=== PATIENT | female | born 1955 | race Hispanic/Latino ===

== ENCOUNTER → 2018-07-05 | Day surgery (SDC) | payer OTHER ==
--- NOTE | 2018-07-05 13:13 | RAD REPORT ---
EXAM DESCRIPTION: US - Guided FNA Non Breast - 07/05/2018 12:04 pm CLINICAL HISTORY: Thyroid nodule ICD 0 4.1. COMPARISON: Ultrasound May 2018. TECHNIQUE: The risks, benefits and alternatives to the procedure were explained to the patient and i nformed consent obtained. Skin and subcutaneous tissues anesthetized with Lidocaine. Under sonographic guidance, five 25-gauge needle passes were obtained into the dominant nodule within the left lobe of the thyroid gland. Specimens were given to pathology. The patient experienced no immediate complication. IMPRESSION: Fine-needle aspiration of a thyroid nodule.
== END ==
LOC: FNA 06-27 09:58
PROVIDERS: ATTEND Internal Medicine
PROC: 0GJK3ZZ Inspection of Thyroid Gland, Percutaneous Approach (ICD-10-PCS; principal; 2018-07-05)
PROC: BG44ZZZ Ultrasonography of Thyroid Gland (ICD-10-PCS; 2018-07-05)
DX: E04.1 Nontoxic single thyroid nodule (principal)
CPT/HCPCS: 76942; 88162

== ENCOUNTER 2023-01-20 06:27 | Day surgery (SDC) | payer BC, OTHER ==
--- NOTE | 2023-01-18 15:44 | RAD REPORT ---
EXAM DESCRIPTION: RAD - Chest Pa And Lat (2 Views) - 01/18/2023 3:34 pm CLINICAL HISTORY: pre op for label drier Chest pain. COMPARISON: CHEST SINGLE VIEW dated 02/19/2016; CHEST SINGLE VIEW dated 03/29/2015; CHEST SINGLE VIEW d ated 02/22/2015; CHEST PA AND LAT 2 VIEW dated 09/06/2014 FINDINGS: The lungs are clear. The heart is normal in size. No displaced fractures. IMPRESSION: No acute or concerning finding suspected.
[2023-01-18 16:19] LABS: Absolute Lymphocytes (CBC) 1.3 K/uL (0.7-4.9); Hematocrit 36.2 % (36.0-45.0); Lymphocytes % 13.2 % (15.3-44.8); MCV 88.5 fL (80-100); MPV 10.6 fL (7.6-11.3); RBC Red Blood Cell Count 4.09 M/uL (3.86-4.86)
[2023-01-18 16:22] LABS: Protime INR 0.98
[2023-01-18 16:28] LABS: Potassium 4.3 mmol/L (3.5-5.1)
--- NOTE | 2023-01-19 16:19 | EKG ---
Test Date: 2023-01-18 Test Time: 15:16:08 Railway Traction Line Worker: CAROL MEASUREMENT RESULTS: Intervals: Rate: 75 HI: 128 QRSD: 90 QT: 382 QTc: 426 [place]: P: 58 HI: 128 QRS: -34 T: 112 INTERPRETIVE STATEMENTS: Normal sinus rhythm Left axis deviation Inferior infarct, age undetermined Possible Anterior infarct, age undetermined ST & T wave abnormality, consider lateral ischemia Abnormal ECG Compared to ECG 02/19/2016 11:48:42 Myocardial infarct finding now present ST (T wave) deviation still present Possible ischemia still present Electronically Signed On 01-19-23 16:18:10 NUCLEAR EQUIPMENT OPERATOR by Viral Gonzales
[~2023-01-20 06:27] MED LIST: ASPIRIN 325 MG TAB ONE; ATROPINE SULF 1 MG/10 ML SYR IV ONE; CLOPIDOGREL 75 MG TABLET ONE; FENTANYL CITR 100 MCG/2 ML ONE; HEPA 1000U/500MLS 2,000 UNIT/1,000 ML BAG IV ONE; HEPARIN 10,000 UNIT/10 ML VIAL IV ONE; HEPARIN 5000 UNIT/ML 1 ML VIAL ONE; LIDOCAINE 1% 20 ML MDV ONE; MIDAZOLAM HCL 2 MG/2 ML INJ ONE; TICAGRELOR 90 MG TABLET PO ONE; VERAPAMIL HCL 10 MG/4 ML VIAL IV ONE
[2023-01-20] MEDS ORDERED: NA CHLORIDE 0.9% 500 ML ONE (06:33)
[2023-01-20 06:37] VITALS: TEMP 97.4
[2023-01-20] MEDS ORDERED: DIPHENHYDRAMINE 50 MG/ML VIAL ONE (06:47)
[2023-01-20] MEDS ORDERED: METHYLPREDNISOLONE 125 MG INJ ONE (06:48)
[2023-01-20 09:32] VITALS: O2SAT 97
[2023-01-20 10:02] VITALS: BP 138/60
== END 2023-01-20 10:03 | disposition home or self-care (01) ==
LOC: CCL 06:27
PROVIDERS: ATTEND Internal Medicine
DX: I25.10 Atherosclerotic heart disease of native coronary artery without angina pectoris (principal); I25.82 Chronic total occlusion of coronary artery; I10 Essential (primary) hypertension; E78.5 Hyperlipidemia, unspecified; E11.9 Type 2 diabetes mellitus without complications; Z79.4 Long term (current) use of insulin; Z79.899 Other long term (current) drug therapy; Z88.5 Allergy status to narcotic agent; Z91.041 Radiographic dye allergy status
CPT/HCPCS: 93005; 85025; 80048; 36415; 85610; 82947; 85730; 71046; 93454; C1893; Q9966; J2001; J1200; J1644 ×2; J2250; J3010; J7040; J2930; J0461

== ENCOUNTER 2023-09-27 22:32 | Observation (INO) | payer OTHER ==
[2023-09-27] MEDS ORDERED: HYDRALAZINE HCL 20 MG/ML VIAL ONE (23:11)
[2023-09-27 23:40] LABS: Hematocrit 35.7 % (36.0-45.0); MCV 88.5 fL (80-100); RBC Red Blood Cell Count 4.03 M/uL (3.86-4.86)
[2023-09-27 23:41] LABS: Lymphocytes % 26.7 % (15.3-44.8); MPV 10.2 fL (7.6-11.3); Platelets 196 thou/uL (152-406); Protime INR 0.95
[2023-09-27] MEDS ORDERED: METOCLOPRAMIDE 10 MG/2mL INJ ONE (23:44)
[2023-09-27] MEDS ORDERED: ACETAMINOPHEN 500 MG TAB ONE (23:44)
[2023-09-27 23:55] LABS: ALT/SGPT 28 U/L (13-56); AST/SGOT 21 U/L (15-37); BUN Blood Urea Nitrogen 21 mg/dL (7-18); Bicarbonate 24 mEq/L (21-32); Glomerular Filtration Rate 49 ml/min (=/>90); Glucose Level 150 mg/dL (74-106); Potassium 4.4 mEq/L (3.5-5.1); Sodium Level 139 mEq/L (136-145)
[2023-09-27 23:56] LABS: Albumin 3.5 g/dL (3.4-5.0); Alkaline Phosphatase 104 U/L (45-117); Bilirubin Total 0.3 mg/dL (0.2-1.0); Magnesium 1.9 mg/dL (1.6-2.4); NT PRO-BNP 463 pg/mL (<125); Protein, Total 7.4 g/dL (6.4-8.2); Troponin High Sensitivity 35.8 pg/mL (<58.9)
[2023-09-28 00:19] LABS: Bilirubin Direct < 0.1 mg/dL (0-0.2); Bilirubin Indirect, Calculated ND mg/dL (0.2-0.8)
--- NOTE | 2023-09-28 02:56 | EDPHYS ---
Physician Documentation [facility] Name: Mary Silva Age: 67 yrs Sex: Female : 1955 Arrival Date: 09/27/2023 Time: 22:32 Bed 7 Private MD: ED Physician Jarred Jacques HPI: 09/27 22:46 This 67 yrs old Female presents to ER via Ambulatory with complaints of High sp4 Blood Pressure, Nose Bleed, Left Side Pain. 22:57 PMH - Historical: Allergies: Codeine; Iodine; IV Contrast; Home Meds: atorvastatin sp4 oral; losartan oral; Plavix Oral PMHx: COLON CA; Diabetes - IDDM; Pancreatitis; Hypertensive disorder; Heart disease PSHx: Coronary artery bypass graft; . 23:21 AC is six 7-year-old female with history of colon cancer diabetes heart disease CABG sp4 hypertensive disorder and pancreatitis who presents with acute onset of elevated blood pressures at home, feeling unwell and posterior headache. Patient reports that yesterday she had episode of nosebleed. . Historical: - Allergies: 22:43 Codeine; bp 22:43 Iodine; bp 22:43 IV contrast; bp - Home Meds: 22:43 atorvastatin oral [Active]; losartan oral [Active]; Plavix Oral [Active]; lisinopril bp Oral 1 tab once daily [Active]; insulin daily [Active]; metoprolol tartrate 25 mg oral tablet 1 tabs daily [Active]; - PMHx: 22:43 COLON CA; Diabetes - IDDM; heart disease; Hypertensive disorder; Pancreatitis; bp - PSHx: 22:43 Coronary artery bypass graft; bp - Immunization history:: Adult Immunizations up to date. - Social history:: Smoking status: Patient denies any tobacco usage or history of. - Family history:: not pertinent. ROS: 23:21 Constitutional: Negative for fever, chills, and weight loss, positive elevated blood sp4 pressure positive posterior headache positive for feeling unwell positive nosebleed yesterday 23:21 All other systems are negative, Exam: 23:21 Constitutional: This is a well developed, well nourished patient who is awake, alert, sp4 and in no acute distress. Head/Face: Normocephalic, atraumatic. Eyes: Pupils equal round and reactive to light, extra-ocular motions intact. Lids and lashes normal. Conjunctiva and sclera are not injected. Cornea within normal limits. Periorbital areas with no swelling, redness, or edema. ENT: Nares patent. No nasal discharge, no septal abnormalities noted. Tympanic membranes are normal and external auditory canals are clear. Oropharynx with no redness, swelling, or masses, exudates, or evidence of obstruction, uvula midline. Mucous membranes moist. Neck: Trachea midline, no thyromegaly or masses palpated, and no cervical lymphadenopathy. Supple, full range of motion without nuchal rigidity, or vertebral point tenderness. Chest/axilla: Normal chest wall appearance and motion. Nontender with no deformity. No lesions are appreciated. Cardiovascular: Regular rate and rhythm with a normal S1 and S2. No gallops, murmurs, or rubs. Normal PMI, no JVD. No pulse deficits. Respiratory: Lungs have equal breath sounds bilaterally, clear to auscultation and percussion. No rales, rhonchi or wheezes noted. No increased work of breathing, no retractions or nasal flaring. Abdomen/GI: Soft, non-tender, with normal bowel sounds. No distension or tympany. No guarding or rebound. No evidence of tenderness throughout. Back: No spinal tenderness. No costovertebral tenderness. Skin: Warm, dry with normal turgor. Normal color with no rashes, no lesions, and no evidence of cellulitis. MS/ Extremity: Pulses equal, no cyanosis. Neurovascular intact. Full, normal range of motion. Neuro: Awake and alert, GCS 15, oriented to person, place, time, and situation. Cranial nerves II-XII grossly intact. Motor strength 5/5 in all extremities. Sensory grossly intact. Psych: Awake, alert, with orientation to person, place and time. Behavior, mood, and affect are within normal limits 09/28 02:55 ECG was reviewed by the Attending Physician. EKG time [id number]. Normal sinus rhythm with a sp4 rate of 75, left axis deviation, no ST elevation or depression. No ectopy Vital Signs: 09/27 22:44 BP 213 / 70; Pulse 74; Resp 16; Temp 98; Pulse Ox 99% ; bp 09/28 00:15 BP 135 / 58; Pulse 73; Resp 18 S; Pulse Ox 100% on R/A; jw7 01:20 BP 116 / 47; Pulse 71; Resp 18; Pulse Ox 97% ; jj7 02:30 BP 126 / 58; Pulse 65; Resp 17 S; Pulse Ox 99% on R/A; jw7 MDM: 09/27 22:46 Patient medically screened. sp4 09/28 02:51 ED course: Chest X ray - TECHNIQUE: Frontal view of the chest. COMPARISON: No relevant sp4 prior studies available. FINDINGS: Lungs: Unremarkable. No consolidation. Pleural space: Unremarkable. No pneumothorax. Heart: Unremarkable. Mediastinum: Unremarkable. Bones/joints: Median sternotomy wires. IMPRESSION: No acute findings in the chest. 02:51 Differential diagnosis: hypertensive crisis, Malignant HTN, CVA, Hypertensive urgency, sp4 anginal equivalent. Data reviewed: vital signs, nurses notes. 02:52 Consideration of Admission/Observation Patient was admitted/placed on observation. sp4 Escalation of care including admission/observation considered. Management of patient was discussed with the following: Hospitalist: Patient presents with exceedingly high blood pressure. ED course: On presentation blood pressure 230/100 this has significantly improved with IV hydralazine. Patient reports he now has some headache and left sided neck pain associated with pain traveling down the left arm. Patient will be started on Imdur, will request admission for blood pressure monitoring. Also for repeat troponin and possible the consultation with public transit trolley driver in the morning. . 05:12 ED course: CT - COMPARISON: No relevant prior studies available. FINDINGS: Brain: Mild sp4 bilateral periventricular and subcortical white matter hypodensity which is nonspecific and can be seen in the clinical setting of chronic microvascular angiopathy. No hemorrhage. Ventricles: Unremarkable. No ventriculomegaly. Bones/joints: Unremarkable. No acute fracture. Soft tissues: Unremarkable. Vasculature: There is atherosclerotic disease of the internal carotid and vertebral arteries bilaterally. Sinuses: Mild right maxillary sinus mucosal thickening. Mastoid air cells: Unremarkable as visualized. No mastoid effusion. IMPRESSION: 1. No acute intracranial or extra-axial abnormality. 2. Other findings as above. . 09/28 15:45 Order name: CT EDMN 09/27 22:46 Order name: XRAY Chest (1 view) sp4 09/27 22:46 Order name: Basic Metabolic Panel; Complete Time: 01:38 sp4 09/27 22:46 Order name: CBC with Diff; Complete Time: 01:38 sp4 09/27 22:46 Order name: LFT's; Complete Time: 01:38 sp4 09/27 22:46 Order name: Magnesium; Complete Time: 01:38 sp4 09/27 22:46 Order name: NT PRO-BNP; Complete Time: 01:38 sp4 09/27 22:46 Order name: PT-INR; Complete Time: 01:38 sp4 09/27 22:46 Order name: Troponin HS; Complete Time: 01:38 sp4 09/28 02:57 Order name: Troponin High Sensitivity sp4 09/28 07:55 Order name: Glucose, Ancillary Testing EDMN 09/28 11:18 Order name: Glucose, Ancillary Testing EDMN 09/28 02:52 Order name: CT Head Brain wo Cont sp4 09/28 07:42 Order name: US EDMS 09/27 22:46 Order name: EKG; Complete Time: 22:47 sp4 09/27 22:46 Order name: Cardiac monitoring; Complete Time: 23:26 sp4 09/27 22:46 Order name: EKG - Nurse/Tech; Complete Time: 00:17 sp4 09/27 22:46 Order name: IV Saline Lock; Complete Time: 23:26 sp4 09/27 22:46 Order name: Labs collected and sent; Complete Time: 23:26 sp4 09/27 22:46 Order name: O2 Per Protocol; Complete Time: 23:26 sp4 09/27 22:46 Order name: O2 Sat Monitoring; Complete Time: 23:26 sp4 EC:55 Rate is 75 beats/min. Rhythm is regular, Sinus Rhythm. Left axis deviation noted. VT sp4 interval is normal. QRS interval is normal. QT interval is normal. T waves are Inverted in lead V5. No ST changes noted. Clinical impression: No evidence of ischemia. Interpreted by me. Administered Medications: 09/27 23:27 Drug: metoCLOPramide IVP 10 mg IVP once; over 1 to 2 minutes Route: IVP; [facility]; 09/28 01:22 Follow up: Response: No adverse reaction 7 09/27 23:29 Drug: hydrALAZINE IVP 20 mg IVP once Route: IVP; Site: right antecubital; 7 09/28 01:22 Follow up: Response: No adverse reaction jw7 09/27 23:35 Drug: Acetaminophen PO 1000 mg PO once Route: PO; jj7 09/28 01:22 Follow up: Response: No adverse reaction jw7 03:31 Drug: Cyclobenzaprine PO 10 mg PO once Route: PO; jw7 04:53 Follow up: Response: No adverse reaction jw7 03:31 Drug: Imdur PO 30 mg PO once Route: PO; jw7 04:53 Follow up: Response: No adverse reaction jw7 Disposition Summary: 09/28/23 02:55 Hospitalization Ordered Notes: Hospitalization Status: Observation sp4 Provider: Marco Piña sp4 Condition: Stable sp4 Problem: new sp4 Symptoms: have improved sp4 Bed/Room Type: Standard sp4 Location: [facility] ER HOLD(09/28/23 17:20) iw Room Assignment: ERHOLD-(09/28/23 17:20) iw Diagnosis - Hypertensive heart disease without heart failure sp4 - Malignant hypertension with hypertensive emergency, acute on chronic renal sp4 insufficiency, anginal equivalent Forms: - Medication Reconciliation Form sp4 - SBAR form sp4 - Leadership Thank You Letter sp4 Signatures: Dispatcher [employer] EDMS Dulce Cruz Kimberly RN Tammy Anthony RN Cramelo Cullen RN Naa Lowery RN RN jw7 Johnson, Juwairiyah RN RN jjJarred Griffin MD MD sp4 Corrections: (The following items were deleted from the chart) 04:19 02:55 Telemetry/MedSurg (observation) sp4 kl 04:19 02:55 sp4 kl 16:46 04:19 [facility] ER HOLD kl bd 16:46 04:19 ERHOLD- kl bd 17:20 16:46 Telemetry/MedSurg (observation) bd iw 17:20 16:46 207 bd iw
--- NOTE | 2023-09-28 02:56 | ER ---
Nurse's Notes [facility] Name: Mary Silva Age: 67 yrs Sex: Female : 1955 Arrival Date: 09/27/2023 Time: 22:32 Bed 7 Private MD: Diagnosis: Hypertensive heart disease without heart failure;Malignant hypertension with hypertensive emergency, acute on chronic renal insufficiency, anginal equivalent Presentation: 09/27 22:44 Chief complaint: Patient states: HTN x4 WK, NOSE BLEED LAST PM, SEEN AT PCP TODAY. bp Coronavirus screen: At this time, the client does not indicate any symptoms associated with coronavirus-19. Ebola Screen: No symptoms or risks identified at this time. Initial Sepsis Screen: Does the patient meet any 2 criteria? No. Patient's initial sepsis screen is negative. Does the patient have a suspected source of infection? No. Patient's initial sepsis screen is negative. Risk Assessment: Do you want to hurt yourself or someone else? Patient reports no desire to harm self or others. Onset of symptoms is unknown. 22:44 Method Of Arrival: Ambulatory bp 22:44 Acuity: JIM 3 bp Triage Assessment: 22:44 General: Appears in no apparent distress. Behavior is cooperative, appropriate for age, bp anxious. Pain: Complains of pain in chest and left arm. Historical: - Allergies: 22:43 Codeine; bp 22:43 Iodine; bp 22:43 IV contrast; bp - Home Meds: 22:43 atorvastatin oral [Active]; losartan oral [Active]; Plavix Oral [Active]; lisinopril bp Oral 1 tab once daily [Active]; insulin daily [Active]; metoprolol tartrate 25 mg oral tablet 1 tabs daily [Active]; - PMHx: 22:43 COLON CA; Diabetes - IDDM; heart disease; Hypertensive disorder; Pancreatitis; bp - PSHx: 22:43 Coronary artery bypass graft; bp - Immunization history:: Adult Immunizations up to date. - Social history:: Smoking status: Patient denies any tobacco usage or history of. - Family history:: not pertinent. Screenin:00 [facility] ED Fall Risk Assessment (Adult) History of falling in the last 3 months, jw7 including since admission No falls in past 3 months (0 pts) Score/Fall Risk Level 0 - 2 = Low Risk Oriented to surroundings, Maintained a safe environment. Abuse screen: Denies threats or abuse. Denies injuries from another. Nutritional screening: No deficits noted. Tuberculosis screening: No symptoms or risk factors identified. Assessment: 23:00 General: Appears in no apparent distress. uncomfortable, Behavior is calm, cooperative. 7 23:00 Pain: Complains of pain in chest and left arm Quality of pain is described as pressure, jw7 Pain began suddenly, Is continuous, Alleviated by medications, Noted to be quiet/stoic. 23:00 Neuro: [place] Agitation-Sedation Scale (RASS): 0 - Alert and Calm Level of jw7 Consciousness is awake, alert, obeys commands, Oriented to person, place, time, situation. Cardiovascular: Heart tones S1 S2 present Capillary refill < 3 seconds Clubbing of nail beds is absent JVD is absent Patient's skin is warm and dry. Cardiovascular: Rhythm is sinus rhythm. Respiratory: Airway is patent Trachea midline Respiratory effort is even, unlabored, Respiratory pattern is regular, symmetrical, Breath sounds are clear bilaterally. GI: No deficits noted. No signs and/or symptoms were reported involving the gastrointestinal system. : No deficits noted. No signs and/or symptoms were reported regarding the genitourinary system. EENT: No deficits noted. No signs and/or symptoms were reported regarding the EENT system. Derm: No deficits noted. No signs and/or symptoms reported regarding the dermatologic system. Musculoskeletal: No deficits noted. No signs and/or symptoms reported regarding the musculoskeletal system. 09/28 00:15 Reassessment: Patient appears in no apparent distress at this time. No changes from [facility] previously documented assessment. Patient and/or family updated on plan of care and expected duration. Pain level reassessed. Patient is alert, oriented x 3, equal unlabored respirations, skin warm/dry/pink. 01:21 Reassessment: Patient appears in no apparent distress at this time. Patient and/or jw7 family updated on plan of care and expected duration. Pain level reassessed. Patient is alert, oriented x 3, equal unlabored respirations, skin warm/dry/pink. Patient states symptoms have improved. 02:40 Reassessment: Patient appears in no apparent distress at this time. No changes from [facility] previously documented assessment. Patient and/or family updated on plan of care and expected duration. Pain level reassessed. Patient is alert, oriented x 3, equal unlabored respirations, skin warm/dry/pink. 04:00 Reassessment: Patient appears in no apparent distress at this time. No changes from jw7 previously documented assessment. Patient and/or family updated on plan of care and expected duration. Pain level reassessed. Patient is alert, oriented x 3, equal unlabored respirations, skin warm/dry/pink. Vital Signs: 09/27 22:44 BP 213 / 70; Pulse 74; Resp 16; Temp 98; Pulse Ox 99% ; bp 09/28 00:15 BP 135 / 58; Pulse 73; Resp 18 S; Pulse Ox 100% on R/A; jw7 01:20 BP 116 / 47; Pulse 71; Resp 18; Pulse Ox 97% ; jj7 02:30 BP 126 / 58; Pulse 65; Resp 17 S; Pulse Ox 99% on R/A; jw7 ED Course: 09/27 22:36 Patient arrived in ED. jj6 22:44 Arm band placed on. bp 22:45 Triage completed. bp 22:46 Jarred Jacques MD is Attending Physician. sp4 23:00 Patient has correct armband on for positive identification. Placed in gown. Bed in low jw7 position. Call light in reach. Side rails up X 1. 23:15 Inserted saline lock: 22 gauge in right antecubital area, using aseptic technique. jj7 Blood collected. 23:27 Basic Metabolic Panel Sent. jj7 23:27 CBC with Diff Sent. jj7 23:27 LFT's Sent. jj7 23:27 Magnesium Sent. jj7 23:28 NT PRO-BNP Sent. jj7 23:28 PT-INR Sent. jj7 23:28 Troponin HS Sent. jj7 23:31 XRAY Chest (1 view) In Process Unspecified. EDMS 23:47 Basic Metabolic Panel Sent. jj7 23:47 LFT's Sent. jj7 23:47 Magnesium Sent. jj7 23:47 NT PRO-BNP Sent. jj7 23:47 Troponin HS Sent. jj7 09/28 00:11 EKG done, by ED staff, reviewed by Jarred Jacques MD. jw7 02:54 Marco Piña MD is Hospitalizing Provider. sp4 04:09 Troponin High Sensitivity Sent. pf1 07:31 Tammy Trent, RN is Primary Nurse. iw Administered Medications: 09/27 23:27 Drug: metoCLOPramide IVP 10 mg IVP once; over 1 to 2 minutes Route: IVP; Site: right [facility] antecubital; 09/28 01:22 Follow up: Response: No adverse reaction jw7 09/27 23:29 Drug: hydrALAZINE IVP 20 mg IVP once Route: IVP; Site: right antecubital; 7 09/28 01:22 Follow up: Response: No adverse reaction jw7 09/27 23:35 Drug: Acetaminophen PO 1000 mg PO once Route: PO; jj7 09/28 01:22 Follow up: Response: No adverse reaction jw7 03:31 Drug: Cyclobenzaprine PO 10 mg PO once Route: PO; jw7 04:53 Follow up: Response: No adverse reaction jw7 03:31 Drug: Imdur PO 30 mg PO once Route: PO; jw7 04:53 Follow up: Response: No adverse reaction jw7 Outcome: 02:55 Decision to Hospitalize by Provider. sp4 17:21 Patient left the ED. iw Signatures: Dispatcher [employer] EDMS Tammy Trent, RN Carmelo Cullen RN RN Aislinn Arriaga jj6 Naa Polanco RN RN jw7 Parag Bagley RN RN jj7 Bianka Garza RN RN pf1 Jarred Jacques MD MD sp4 Corrections: (The following items were deleted from the chart) 00:12 09/27 23:00 General: see triage assessment. jw7 jw7 09/28 00:15 00:12 General: Appears in no apparent distress. uncomfortable, Behavior is calm, jw7 cooperative, jw7
[2023-09-28] MEDS ORDERED: ACETAMINOPHEN 325 MG TABLET PO PRN (03:01)
[2023-09-28] MEDS ORDERED: ONDANSETRON 4 MG/2 ML VIAL IV PRN (03:01)
--- NOTE | 2023-09-28 03:10 | P.HP ---
Certification for Inpatient Patient admitted to: Observation With expected LOS: <2 Midnights Practitioner: I am a practitioner with admitting privileges, knowledge of patient current condition, hospital course, and medical plan of care. Services: Services provided to patient in accordance with Admission requirements found in Title 42 Section 412.3 of the Code of Federal Regulations Patient History Date of Service: 09/28/23 Reason for admission: Hypertensive urgency, suspected TIA. History of Present Illness: 67-year-old female patient with past medical history significant for hypertension, diabetes type 2, hyperlipidemia, history of coronary disease status post bypass graft surgery, hyperlipidemia was evaluated for episode of discomfort/pain in the left shoulder radiating down to the left leg. She reports that new onset elevated blood pressure despite taking her blood pressure medications. She is on losartan and metoprolol. She had gone to her primary care doctor was given instruction to help dose of metoprolol to 50 mg p.o. twice daily if systolic blood pressure is above 160 millimeters of mercury. She denied overt episode of chest pain, blurry vision, fever, chills, weakness in the extremities. She did report some mild headache in the posterior region. Because of her presentation she was worked up in the emergency room after she had repeat blood pressure with systolic of over 200 at home x2 times. Labs reviewed elevated creatinine 1.22, CT of the head showed no acute abnormality. She was given IV hydralazine for management of her elevated blood pressure thought to be having hypertensive urgency. She was admitted on observation for proper blood pressure control. Allergies codeine Allergy (Intermediate, Verified 01/18/23 15:04) Hives/Rash Iodinated Contrast Media [Iodinated Contrast Media - IV Dye] Allergy (Intermediate, Verified 01/18/23 15:04) Hives/Rash iodine Allergy (Mild, Verified 01/18/23 15:04) Hives Home Medications: Aspirin [Aspirin EC] 1 tab PO DAILY 03/22/23 Atorvastatin Calcium 1 tab PO DAILY 03/22/23 Clopidogrel Bisulfate [Plavix] 1 tab PO DAILY 03/22/23 Insulin NPH Hum/Reg Insulin Hm [Novolin 70-30 100 Unit/ml Vial] See Protocol SQ SEECOM 03/22/23 Losartan Potassium 1 tab PO DAILY 03/22/23 Metoprolol Tartrate [Lopressor*] 25 mg PO BID #60 tab 03/22/23 - Past Medical/Surgical History Diabetic: Yes -: IDDM -: Pancreatic Cancer -: COLON CANCER -: Hypertension -: Coronary artery disease -: COLON RESECTION -: CHOLECYSTECTOMY -: CABG Psychosocial/ Personal History: Patient is . - Family History Father -: Heart disease Mother -: Heart disease, Diabetes - Social History Alcohol use: No CD- Drugs: No Caffeine use: No Review of Systems General: Unremarkable Eyes: Unremarkable ENT: Unremarkable Respiratory: Unremarkable Cardiovascular: Chest Pain Gastrointestinal: Unremarkable Genitourinary: Unremarkable Musculoskeletal: Unremarkable Neurological: Numbness, As per HPI Physical Examination - Physical Exam General: Alert, Oriented x3 HEENT: Atraumatic, Normocephalic Neck: Supple Respiratory: Clear to auscultation bilaterally, Normal air movement Cardiovascular: Regular rate/rhythm, Normal S1 S2 Gastrointestinal: Soft and benign Musculoskeletal: No swelling Neurological: Normal speech, Normal strength at 5/5 x4 extr - Studies Laboratory Data (last 24 hrs) 09/27/23 09/27/23 09/27/23 23:19 23:19 23:19 WBC 7.60 Hgb 12.2 Hct 35.7 L Plt Count 196 PT 10.5 INR 0.95 Sodium 139 Potassium 4.4 BUN 21 H Creatinine 1.22 H Glucose 150 H Magnesium 1.9 Total Bilirubin 0.3 AST 21 ALT 28 Alkaline Phosphatase 104 Assessment and Plan - Plan Hypertensive urgency: Patient does have significant concerns. Blood pressure elevated systolic over 200 however this was improved with administration of IV antihypertensive medication. We will have on telemetry, work-up for possible TIA with carotid Doppler ultrasound. We will obtain lipid panel. Continue antihypertensive medication of carvedilol and nifedipine for better blood pressure control. We will adjust blood pressure medications to achieve goal blood pressure less than 130/80 mmHg. Diabetes type 2: We will monitor blood sugar ACHS and continue sliding scale insulin for glucose control. Carb restricted diet to be continued. Hyperlipidemia: We will continue statin therapy KAREN versus CKD: Creatinine is elevated at 1.23. There is concerns for possible CKD. We will continue to dose medication for estimated glomerular filtration and avoid exposure to nephrotoxins. We will recommend to establish outpatient nephrology visit for management of suspected CKD. CAD: We will continue statin therapy, Plavix and aspirin. Prophylaxis: Lovenox for DVT prophylaxis Code status: Full code. Disposition: We will work-up suspected TIA/hypertensive urgency and discharge when she is deemed clinically stable. - Advance Directives Does patient have a Living Will: No Does patient have a Durable POA for Healthcare: No
[2023-09-28] MEDS ORDERED: CYCLOBENZAPRINE 10 MG TAB ONE (03:27)
[2023-09-28] MEDS ORDERED: ISOSORBIDE MONO SR 30 MG TAB PO ONE (03:38)
[2023-09-28 04:37] VITALS: BMI 27.3
[2023-09-28] MEDS ORDERED: carvediloL 12.5 MG TAB PO SCH (06:00)
[2023-09-28] MEDS: INSULIN REGULAR (HUMAN) 100 UNIT/ML SQ SCH ×2 (07:30→11:30)
--- NOTE | 2023-09-28 07:42 | RAD REPORT ---
EXAM DESCRIPTION: US - CP - 09/28/2023 5:06 am CLINICAL HISTORY: eval of tia COMPARISON: Thyroid Para Parotid Gland dated 06/21/2018 TECHNIQUE: Real-time sonographic evaluation of both carotid systems was performed. Doppler interroga tion was performed with waveform tracing bilaterally. FINDINGS: Color Doppler, grayscale, and spectral analysis was performed. Normal high resistance waveforms are noted in both external carotid arteries. The common carotid fadi elliot and internal carotid arteries show normal low resistance waveforms. Soft plaque visualized at the bilateral ICAs. Mild elevated peak systolic velocities are present with in the right and left ICA. The peak systolic velocity of the right proximal and mid ICA measure 130 c m/second and 150 cm/second, respectively. The left ICA proximally has a peak systolic velocity of 127 cm/s. ICA/CCA ratios of 1.5 on the right and 1.1 on the left which are within normal limits. Elevate d peak systolic velocities present involving the right and left external carotid artery. On the right , the peak systolic velocity is 145 cm/second. On the left, the peak systolic velocity is 142 cm/s. T hese have plaque on grayscale likely reflecting true stenoses. Antegrade flow seen in both vertebral arteries. IMPRESSION: No flow limiting stenosis involving either the bilateral common carotid arteries, international account representative al carotid arteries, or vertebral arteries. Moderate stenoses present at the proximal external caroti d arteries.
--- NOTE | 2023-09-28 07:49 | EKG ---
Test Date: 2023-09-27 Test Time: 23:58:09 Ground Crew Chief: CAMELIA MEASUREMENT RESULTS: Intervals: Rate: 75 NH: 136 QRSD: 84 QT: 428 QTc: 477 [place]: P: 58 NH: 136 QRS: -32 T: 123 INTERPRETIVE STATEMENTS: Normal sinus rhythm Left axis deviation Inferior infarct, age undetermined Anterior infarct, age undetermined ST & T wave abnormality, consider lateral ischemia Abnormal ECG Compared to ECG 03/21/2023 22:48:35 ST (T wave) deviation now present Possible ischemia now present Myocardial infarct finding still present Electronically Signed On 09-28-23 07:48:27 CDT by Viral Gonzales
[2023-09-28] MEDS ORDERED: NIFEDIPINE XL 30 MG TABLET PO SCH (09:00)
[2023-09-28] MEDS ORDERED: CLOPIDOGREL 75 MG TABLET PO SCH (09:00)
[2023-09-28] MEDS ORDERED: ENOXAPARIN 40 MG/0.4 ML SQ SCH (09:00)
[2023-09-28] MEDS ORDERED: ASPIRIN 81 MG CHEWABLE TABLET PO SCH (09:00)
[2023-09-28] MEDS ORDERED: ASPIRIN EC 81 MG TAB PO ONE (09:15)
[2023-09-28] MEDS ORDERED: CLOPIDOGREL 75 MG TABLET ONE (09:16)
[2023-09-28] MEDS ORDERED: ENOXAPARIN 40 MG/0.4 ML SQ ONE (09:16)
--- NOTE | 2023-09-28 15:05 | RAD REPORT ---
EXAM DESCRIPTION: RAD - Chest Single View - 09/27/2023 11:30 pm CLINICAL HISTORY: The patient is 67 years old and is Female; CHEST PAIN TECHNIQUE: Frontal view of the chest. COMPARISON: No relevant prior studies available. FINDINGS: Lungs: Unremarkable. No consolidation. Pleural space: Unremarkable. No pneumothorax. Heart: Unremarkable. Mediastinum: Unremarkable. Bones/joints: Median sternotomy wires. IMPRESSION: No acute findings in the chest. Electronically signed by: Miguel Angel Barney MD 09/27/2023 11:41 PM CDT Due to temporary technical issues with the PACS/Fluency reporting system, reports are being signed by the in house radiologists without review as a courtesy to insure prompt reporting. The interpreting radiologist is fully responsible for the content of the report.
--- NOTE | 2023-09-28 15:45 | RAD REPORT ---
EXAM DESCRIPTION: CT - Head Brain Wo Cont - 09/28/2023 6:50 am CLINICAL HISTORY: Headache and hypertension TECHNIQUE: Axial computed tomography images of the head/brain without intravenous contrast. Sagitt al and coronal reformatted images were created and reviewed. This CT exam was performed using one o r more of the following dose reduction techniques: automated exposure control, adjustment of the mA and/or kV according to patient size, and/or use of iterative reconstruction technique. COMPARISON: No relevant prior studies available. FINDINGS: Brain: Mild bilateral periventricular and subcortical white matter hypodensity which is nonspecific and can be seen in the clinical setting of chronic microvascular angiopathy. No hemorrh age. Ventricles: Unremarkable. No ventriculomegaly. Bones/joints: Unremarkable. No acute fracture. Soft tissues: Unremarkable. Vasculature: There is atherosclerotic disease of the internal carotid and vertebral arteries bilate [place]. Sinuses: Mild right maxillary sinus mucosal thickening. Mastoid air cells: Unremarkable as visualized. No mastoid effusion. IMPRESSION: 1. No acute intracranial or extra-axial abnormality. 2. Other findings as above. Electronically signed by: Bang Alford MD 09/28/2023 3:57 AM CDT Due to temporary technical issues with the PACS/Fluency reporting system, reports are being signed by the in house radiologists without review as a courtesy to insure prompt reporting. The interpreting radiologist is fully responsible for the content of the report.
[2023-09-28 17:28] VITALS: TEMP 98
[2023-09-28 17:33] VITALS: BP 126/58; O2SAT 99
--- NOTE | 2023-10-02 18:16 | P.DS ---
Discharge Date: 09/28/23 Disposition: ROUTINE DISCHARGE Discharge Condition: GOOD Reason for Admission: Hypertensive urgency, suspected TIA. Brief History of Present Illness: 67-year-old female patient with past medical history significant for hypertension, diabetes type 2, hyperlipidemia, history of coronary disease status post bypass graft surgery, hyperlipidemia was evaluated for episode of discomfort/pain in the left shoulder radiating down to the left leg. She reports that new onset elevated blood pressure despite taking her blood pressure medications. She is on losartan and metoprolol. She had gone to her primary care doctor was given instruction to help dose of metoprolol to 50 mg p.o. twice daily if systolic blood pressure is above 160 millimeters of mercury. She denied overt episode of chest pain, blurry vision, fever, chills, weakness in the extremities. She did report some mild headache in the posterior region. Because of her presentation she was worked up in the emergency room after she had repeat blood pressure with systolic of over 200 at home x2 times. Labs reviewed elevated creatinine 1.22, CT of the head showed no acute abnormality. She was given IV hydralazine for management of her elevated blood pressure thought to be having hypertensive urgency. She was admitted on observation for proper blood pressure control. Vital Signs/Physical Exam: Temp Pulse Resp BP Pulse Ox 98 F 65 17 126/58 L 99 09/28/23 17:26 09/28/23 17:31 09/28/23 17:31 09/28/23 17:31 09/28/23 17:20 General: Alert, In no apparent distress, Oriented x3 Laboratory Data at Discharge: WBC 7.60 thou/uL (4.3-10.9) 09/27/23 23:19 Hgb 12.2 g/dL (12.0-15.0) 09/27/23 23:19 Hct 35.7 % (36.0-45.0) L 09/27/23 23:19 Plt Count 196 thou/uL (152-406) 09/27/23 23:19 PT 10.5 SECONDS (9.5-12.5) 09/27/23 23:19 INR 0.95 09/27/23 23:19 Sodium 139 mEq/L (136-145) 09/27/23 23:19 Potassium 4.4 mEq/L (3.5-5.1) 09/27/23 23:19 BUN 21 mg/dL (7-18) H 09/27/23 23:19 Creatinine 1.22 mg/dL (0.55-1.02) H 09/27/23 23:19 Glucose 150 mg/dL (74-106) H 09/27/23 23:19 Magnesium 1.9 mg/dL (1.6-2.4) 09/27/23 23:19 Total Bilirubin 0.3 mg/dL (0.2-1.0) 09/27/23 23:19 AST 21 U/L (15-37) 09/27/23 23:19 ALT 28 U/L (13-56) 09/27/23 23:19 Alkaline Phosphatase 104 U/L (45-117) 09/27/23 23:19 Home Medications: Aspirin [Aspirin EC] 1 tab PO DAILY 03/22/23 Atorvastatin Calcium 1 tab PO DAILY 03/22/23 Clopidogrel Bisulfate [Plavix] 1 tab PO DAILY 03/22/23 Insulin NPH Hum/Reg Insulin Hm [Novolin 70-30 100 Unit/ml Vial] See Protocol SQ SEEC[facility] 03/22/23 Losartan Potassium 1 tab PO DAILY 03/22/23 Metoprolol Tartrate [Lopressor*] 50 mg PO BID 09/28/23 Nifedipine Xl [Procardia Xl*] 30 mg PO DAILY #30 tab 09/28/23 New Medications: Nifedipine Xl [Procardia Xl*] 30 mg PO DAILY #30 tab Physician Discharge Instructions: OK TO DC IV AND DC HOME FOLLOW-UP WITH PCP IN 1-2 WEEKS CALL ME AT [phone] IF ANY QUESTIONS REGARDING HOSPITAL STAY RETURN TO THE ER IF SYMPTOMS WORSENS FOLLOW-UP WITH CARDIOLOGY IN 1-2 WEEKS Diet: AHA Activity: Fall precautions Followup: Bladimir Vail, DO [Primary Care Provider] -
== END 2023-09-28 17:21 | disposition home or self-care (01) ==
LOC: ER 22:32 → ERHOLD 09-28 03:02
PROVIDERS: ADMIT Internal Medicine Nephrology; ATTEND Hospitalist
DX: I16.0 Hypertensive urgency (principal); I10 Essential (primary) hypertension; E11.9 Type 2 diabetes mellitus without complications; E78.5 Hyperlipidemia, unspecified; I25.10 Atherosclerotic heart disease of native coronary artery without angina pectoris; R51.9 Headache, unspecified; M25.512 Pain in left shoulder; Z91.09 Other allergy status, other than to drugs and biological substances; Z88.5 Allergy status to narcotic agent; Z95.1 Presence of aortocoronary bypass graft; Z79.82 Long term (current) use of aspirin; Z79.4 Long term (current) use of insulin; Z85.038 Personal history of other malignant neoplasm of large intestine; Z85.07 Personal history of malignant neoplasm of pancreas
CPT/HCPCS: 93005; 85025; 80048; 36415; 83735; 85610; 82947 ×2; 80076; 84484 ×2; 83880; 70450; 71045; 93880; 96375; 96374; 99284; J0360; J2765; J1650; G0378 ×2

== ENCOUNTER 2024-06-15 14:03 | Day surgery (SDC) | payer OTHER ==
[2024-06-12 15:07] LABS: Absolute Eosinophils 0.1 K/uL (0-0.5); Absolute Lymphocytes (CBC) 1.2 K/uL (0.7-4.9); Absolute Monocytes 0.3 K/uL (0.1-1.3); Absolute Neutrophil 4.7 K/uL (1.8-8.0); Basophils % 0.7 % (0-1.3); Eosinophils % 1.9 % (0-4.4); Hematocrit 37.9 % (36.0-45.0); Hemoglobin 12.6 g/dL (12.0-15.0); Lymphocytes % 19.2 % (15.3-44.8); MCH 29.2 pg (27.0-35.0); MCHC 33.2 g/dL (32.0-36.0); MPV 10.2 fL (7.6-11.3); Neutrophils % 74.2 % (41.7-73.7); Nucleated Red Blood Cells % 0.1 % (0-0); Platelets 215 thou/uL (152-406); RBC Red Blood Cell Count 4.31 M/uL (3.86-4.86); Red Cell Distribution Width 13.8 % (12.1-15.2)
[2024-06-12 15:18] LABS: PT Prothrombin Time 11.1 SECONDS (9.4-12.5); PTT, Activated Partial Thromb 32.4 SECONDS (24.3-36.9); Protime INR 0.99
[2024-06-12 16:05] LABS: Anion Gap 6.6 mEq/L (5.0-15.0); Potassium 4.6 mEq/L (3.5-5.1)
--- NOTE | 2024-06-12 16:48 | RAD REPORT ---
EXAM DESCRIPTION: RAD - Chest Pa And Lat (2 Views) - 06/12/2024 3:12 pm CLINICAL HISTORY: Pre op pending heart cath COMPARISON: Chest Single View dated 09/27/2023; Chest Single View dated 03/21/2023; Chest Pa And Lat (2 Views) dated 01/18/2023; CHEST SINGLE VIEW dated 02/19/2016 FINDINGS: Lines: None. Lungs: No evidence of edema or pneumonia. Pleural: No significant pleural effusions or pneumothorax. Cardiac: The heart size is within normal limits. Mediastinum: Within normal limits. Bones: No acute fractures. Sternotomy. Other: None IMPRESSION: No acute cardiopulmonary disease.
--- NOTE | 2024-06-13 12:42 | EKG ---
Test Date: 2024-06-12 Test Time: 14:54:38 Lpn Rn Hospice: [facility] MEASUREMENT RESULTS: Intervals: Rate: 61 GA: 130 QRSD: 86 QT: 424 QTc: 426 [place]: P: 54 GA: 130 QRS: -30 T: 124 INTERPRETIVE STATEMENTS: Normal sinus rhythm Left axis deviation Inferior infarct, age undetermined Anterior infarct, age undetermined ST & T wave abnormality, consider lateral ischemia Abnormal ECG Compared to ECG 09/27/2023 23:58:09 No significant changes Electronically Signed On 06-13-24 12:41:27 CDT by Fer Horan
[2024-06-15] MEDS ORDERED: MIDAZOLAM HCL 2 MG/2 ML INJ ONE (14:07)
[2024-06-15] MEDS ORDERED: HEPA 1000U/500MLS 2,000 UNIT/1,000 ML BAG IV ONE (14:07)
[2024-06-15] MEDS ORDERED: LIDOCAINE 1% 20 ML MDV ONE (14:07)
[2024-06-15] MEDS ORDERED: ATROPINE SULF 1 MG/10 ML SYR IV ONE (14:07)
[2024-06-15] MEDS ORDERED: HEPARIN 10,000 UNIT/10 ML VIAL IV ONE (14:08)
[2024-06-15] MEDS ORDERED: FENTANYL CITR 100 MCG/2 ML ONE (14:08)
[2024-06-15] MEDS ORDERED: HEPARIN 5000 UNIT/ML 1 ML VIAL ONE (14:08)
[2024-06-15] MEDS: NA CHLORIDE 0.9% 500 ML ONE (14:11)
[2024-06-15] MEDS ORDERED: DIPHENHYDRAMINE 50 MG/ML VIAL ONE (14:47)
[2024-06-15] MEDS ORDERED: METHYLPREDNISOLONE 125 MG INJ ONE (14:47)
[2024-06-15 16:27] VITALS: TEMP 97.5
[2024-06-15 18:14] VITALS: BP 131/57; O2SAT 99
--- NOTE | 2024-06-16 21:29 | OP ---
Date of Procedure: 06/15/2024 Surgeon: STEPHANE VALDEZ Procedures Performed: 1.Selective coronary angiogram with bypass graft study. 2.Left heart catheterization. Indication: Chest pain with abnormal stress test. Access: Right common femoral artery 6-[place], closed with StarClose. Complications: None. Bleeding: Less than 50 mL. Anesthesia: Total sedation time was 1 hour. Description Of Procedure: After risks, benefits, and alternatives were explained, the patient agreed to procedure and signed informed consent. The patient was brought into cardiac catheterization [facility], prepped and draped in usual sterile fashion. Then, I accessed right common femoral artery us ing micropuncture kit, ultrasound guidance, fluoroscopy with 6-[place] Anderson sheath, took 6-[place] JL4 catheter into aortic root, engaged left main, took standard views and exchanged for a 6-[place] JR 4 catheter across the aortic valve, measured the LVEDP. Pullback did not record any gradient, then e ngaged the RCA, took standard views, engaged the SVG to RCA and SVG to OM and BROWN to LAD and took st andard views and also checked the LUIS MANUEL, it was free. Then, I took the catheter out, sheath out, and StarClose was used for closure with good hemostasis. Findings: 1.Left main is normal. 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 3.Left circumflex, diffuse, proximal disease 80%. 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 Graft Study: 1.Patent BROWN to LAD, however, it is very small and even the LAD itself is very small, but it is pat ent. 2.Patent SVG to OM. 3.Patent SVG to RCA. The RCA is a large vessel that shows diffuse PDA disease about 60% to 70%. Conclusion: Severe multivessel [place] coronary artery disease with patent grafts, however, the LAD i s small. The BROWN is small and there is significant diffuse stenosis post graft of the RCA. At this point, medical management is recommended. If her ejection fraction is normal, continue medical amaya barksdale. She is to follow up with me in the office in 1 week. SR/MODL Voice ID: [id number] Report ID: [id number]
== END 2024-06-15 18:06 | disposition home or self-care (01) ==
LOC: PRE 14:03 → CCL 18:06
PROVIDERS: ATTEND Internal Medicine
DX: I25.10 Atherosclerotic heart disease of native coronary artery without angina pectoris (principal); I25.82 Chronic total occlusion of coronary artery; I73.9 Peripheral vascular disease, unspecified; I10 Essential (primary) hypertension; E11.9 Type 2 diabetes mellitus without complications; E78.5 Hyperlipidemia, unspecified; Z95.1 Presence of aortocoronary bypass graft; Z79.899 Other long term (current) drug therapy; Z88.5 Allergy status to narcotic agent
CPT/HCPCS: 36415; 71046; 76937; 80048; 82947; 85025; 85610; 85730; 93005; 93458; 93459; 99152; 99153; C1760; C1887; C1893; J0461; J1200; J1644; J2001; J2250; J2919; J3010; J7040; Q9966